=== PATIENT | female | born 1960 | race Caucasian/White ===

== ENCOUNTER 2020-05-21 16:43 | Outpatient (REF) | payer MEDICAID, SELFPAY ==
--- NOTE | 2020-05-21 | US_ITS ---
EXAMINATION: LEFT LOWER EXTREMITY VENOUS ULTRASOUND CLINICAL INFORMATION: Left leg swelling COMPARISON: None TECHNIQUE: Doppler color and grayscale evaluation of the left lower extremity FINDINGS: The left common femoral, superficial femoral, profunda and popliteal veins and visualized posterior tibial and peroneal veins in the calf are patent. There is no evidence of DVT. There is no Wallace's cyst. There is left inguinal lymphadenopathy. IMPRESSION: No evidence of DVT.
== END 2020-05-21 16:44 | disposition home or self-care (01) ==
LOC: HO.US 16:43
PROVIDERS: PCP Internal Medicine; Visit Provider Internal Medicine
DX: R60.0 Localized edema (principal); M79.89 Other specified soft tissue disorders
CPT/HCPCS: 93971

== ENCOUNTER 2020-07-08 10:06 | Day surgery (SDC) | payer MEDICAID, SELFPAY ==
[2020-07-02 11:05] VITALS: BMI 48.1
--- NOTE | 2020-07-07 13:23 | P.CONAN_ITS ---
Documented by User: Jeanette North 07/07/20 13:23 HPI - Anesthesia Eval Consult details Narrative: 59yo F for Colonoscopy [facility] Past Medical History Medical History Arthritis Back pain Hiatal hernia History of shingles HTN (hypertension) Stress incontinence Venous insufficiency Surgical History Surgical History Hx of section Social History Social History Smoking Status: Current every day smoker Packs Per Day: 0.75 Cigarettes Per Day: 15.0 Years Smoked: 47 Use of substances other than those prescribed or required for medical reasons: No Have you been hit, kicked, punched, or otherwise hurt by someone within the past year? If so, by whom?: No Advance Directives Information Provided: No Recently lost weight without trying: No Meds Allergies Allergy/AdvReac Type Severity Reaction Status Date / Time banana [BANANA] Allergy Severe Vomiting Verified 07/02/20 11:12 Sulfa (Sulfonamide Allergy Intermediate HIVES Verified 07/02/20 11:12 Antibiotics) [SULFA (SULFONAMIDE ANTIBIOTICS)] adhesive tape AdvReac Intermediate Blister Verified 07/02/20 11:12 Home Medications Medication Instructions Recorded Confirmed Type dicyclomine 10 mg PO BID 07/02/20 07/02/20 History ibuprofen 800 mg PO BID 07/02/20 07/02/20 History [id number] 1 tab PO Q4H PRN 07/02/20 07/02/20 History [Bronkaid] Exam Exam Date and Time: July 07, 2020 1323 Height,Weight and Vital Signs: Height 5 ft 9 in Weight 147.871 kg Assessment and Plan Assessment Anesthesia Assessment: Chart Reviewed Documented by User: Marco A Way 07/08/20 11:47 [facility] Past Medical History Medical History Arthritis Back pain Hiatal hernia History of shingles HTN (hypertension) Stress incontinence Venous insufficiency Surgical History Surgical History Hx of section Social History Social History Smoking Status: Current every day smoker Packs Per Day: 0.75 Cigarettes Per Day: 15.0 Years Smoked: 47 Use of substances other than those prescribed or required for medical reasons: No Have you been hit, kicked, punched, or otherwise hurt by someone within the past year? If so, by whom?: No Advance Directives Information Provided: No Recently lost weight without trying: No Meds Allergies Allergy/AdvReac Type Severity Reaction Status Date / Time banana [BANANA] Allergy Severe Vomiting Verified 07/02/20 11:12 Sulfa (Sulfonamide Allergy Intermediate HIVES Verified 07/02/20 11:12 Antibiotics) [SULFA (SULFONAMIDE ANTIBIOTICS)] adhesive tape AdvReac Intermediate Blister Verified 07/02/20 11:12 Home Medications Medication Instructions Recorded Confirmed Type dicyclomine 10 mg PO BID 07/02/20 07/02/20 History ibuprofen 800 mg PO BID 07/02/20 07/02/20 History [id number]-PM 1 tab PO Q4H PRN 07/02/20 07/02/20 History [Bronkaid] Exam Airway Mallampati Class: II TM Dist: >3cm Neck ROM: Full Heart: RRR Assessment and Plan Assessment Anesthesia Assessment: Anesthesia Plan Discussed Final Anesthetic Review NPO: Yes ASA Class: III Final Preanesthetic Review: Consent Obtained/Reviewed Anesthetic Plan Anesthetic Plan: MAC: Disposition: Standard PACU
[2020-07-08 10:36] VITALS: BP 129/78; PULSE 87; RESP 18; TEMP 36.1; O2SAT 99
[2020-07-08] MEDS: Lactated Ringers 1,000 ML 100 ML IVCONT (11:00)
--- NOTE | 2020-07-08 11:42 | MHC.SHP ---
Pre-Procedural Eval Section B Chief Complaint: SCREENING Details of Present Illness: COLON CANCER SCREENING #1 MORBID OBESITY, COPD/CHRONIC BRONCHITIS INTERIM ILLNESS--CELLULITIS L LEG Relevant Family History (Specify if Yes): No Relevant Social History: Tobacco Use (DOWN TO 1 PPD) Present Medications: see Short Stay Collaborative assessment Medical History: Significant History (MORBID OBESITY, CHRONIC BRONCHITIS COPD ongoing cigarette smoker) History of Previous Operations: No relevant previous surgery Allergies: Allergies Allergy/AdvReac Type Severity Reaction Status Date / Time banana [BANANA] Allergy Severe Vomiting Verified 07/02/20 11:12 Sulfa (Sulfonamide Allergy Intermediate HIVES Verified 07/02/20 11:12 Antibiotics) [SULFA (SULFONAMIDE ANTIBIOTICS)] adhesive tape AdvReac Intermediate Blister Verified 07/02/20 11:12 Review of Systems Sugical H&P ROS: Negative: Cardiovascular, Neurological, Gastrointestinal and Musculoskeletal and Yes, Specify: Constitution (elevated BMI), Respiratory (chronic productive cough) and Integumentary (cellulitis) Exam Surgical H&P Exam: Normal: HEENT and Normal: Heart and Significant Findings: Lungs (bronchitic cough) and Significant Findings: Abdomen (obesity) Plan Diagnosis/Plan: Unchanged Patient has been examined and remains a candidate for the planned procedure--yes
[2020-07-08 12:41] VITALS: BP 108/64; PULSE 81; RESP 12; TEMP 36.6; O2SAT 100
--- NOTE | 2020-07-08 12:44 | PM.PROC ---
Brief Operative Note Date of procedure: 07/08/20 Pre-op diagnosis: Colon cancer screening Post-op diagnosis: other (Diverticulosis, 1-2+ Internal hemorrhoids) Procedure: Colonoscopy with bx Anesthesia: MAC (BOBBI Leo) Surgeon: Kayla Bardales Estimated blood loss (mL): 10 Pathology: other (Bx Descending colon) Condition: stable Disposition: PACU
[2020-07-08 12:55] VITALS: BP 119/71; PULSE 81; RESP 18; O2SAT 100
[2020-07-08 13:10] VITALS: BP 132/93; PULSE 73; RESP 20; O2SAT 98
[2020-07-08 13:21] VITALS: BP 143/77; PULSE 76; RESP 20; TEMP 36.1; O2SAT 99
--- NOTE | 2020-07-10 09:22 | OP_ITS ---
SURGEON: Kayla Bardales MD PREOPERATIVE DIAGNOSIS: Colon cancer screening, non high-risk. POSTOPERATIVE DIAGNOSIS: Negative exam for polyps, non specific focal inflamation PROCEDURE PERFORMED: Colonoscopy with biopsy. ESTIMATED BLOOD LOSS: Less than 10 mL. COMPLICATIONS: No complications. ANESTHESIA: Monitored ANESTHESIOLOGIST: Cuong [place] CRNA ASSISTANTS: No news production assistant. SPECIMENS: PRIMARY CARE PROVIDER: POSTOPERATIVE DIAGNOSES: 1. Diverticulosis. 2. 1 to 2+ internal hemorrhoids. FOCUS PULLER: Kayla Bardales MD CONDITION: Postprocedure, stable. GRAFTS OR IMPLANTS: No grafts or implants. DESCRIPTION OF PROCEDURE: Digital rectal exam revealed decreased tone. Video colonoscope was introduced without difficulty. There were scattered prep artifacts, some solid stool in left side, some turbid fluid on the right side. We noted several areas of diverticula in the sigmoid colon. We approached the descending colon. There was patchy erythema in one area with some mild exudative change. Colon was very redundant. Scope was slowly advanced throughout. There was a retroflexed view in the ascending colon-negative. With gentle extrinsic abdominal pressure, we ultimately facilitated movement into the cecum. Appendiceal orifice was seen. Ileocecal valve was well seen. Scope was slowly withdrawn. Good rotational views. Biopsies were taken in the areas of erythema. Anorectal verge was mildly inflamed. COMMENT: Patchy erythema with redundant colon, may just be related to areas of irritation from retained stool in that area in a patient, who may tend to be somewhat constipated. PLAN: I will review biopsies in terms of colon cancer screening due to the prep redundancy, consideration for repeat screening and this patient should certainly be 5 years. TYPE OF ANESTHESIA: Monitored. SPECIMEN: Removed biopsy, descending colon. Kayla Bardales MD MEN/MODL / [id number] JOEY
== END 2020-07-08 13:53 | disposition home or self-care (01) ==
PROVIDERS: PCP Internal Medicine; Visit Provider Internal Medicine Gastroenterology
PROC: 0DJD8ZZ Inspection of Lower Intestinal Tract, Via Natural or Artificial Opening Endoscopic (ICD-10-PCS; CPT 45378; principal; 2020-07-08 12:00)
DX: Z12.11 Encounter for screening for malignant neoplasm of colon (principal); K52.9 Noninfective gastroenteritis and colitis, unspecified; K57.30 Diverticulosis of large intestine without perforation or abscess without bleeding; K64.8 Other hemorrhoids; I10 Essential (primary) hypertension; J44.9 Chronic obstructive pulmonary disease, unspecified; E66.01 Morbid (severe) obesity due to excess calories; Z68.43 Body mass index [BMI] 50.0-59.9, adult; F17.210 Nicotine dependence, cigarettes, uncomplicated; Z88.2 Allergy status to sulfonamides
CPT/HCPCS: 45380; 88305; J2250